=== PATIENT | male | born 1945 | race Caucasian/White ===

== ENCOUNTER → 2017-10-08 | Outpatient (REF) | payer OTHER ==
[2017-10-08 14:34] LABS: APPEARANCE, URINE HAZY (CLEAR); BACTERIA, URINE AUTO NEGATIVE (NEGATIVE); BILIRUBIN, URINE AUTO NEGATIVE (NEGATIVE); BLOOD, URINE BLOOD NEGATIVE (NEGATIVE); COLOR, URINE YELLOW (YELLOW); GLUCOSE, URINE (UA) AUTO NEGATIVE (NEGATIVE); KETONE, URINE AUTO TRACE mg/dL (NEGATIVE); LEUKOCYTE ESTERASE, URINE AUTO NEGATIVE (NEGATIVE); MUCUS, URINE SMALL (NEGATIVE); NITRITE, URINE AUTO NEGATIVE (NEGATIVE); PROTEIN, URINE AUTO NEGATIVE (NEGATIVE); RBC, URINE AUTO 18 /HPF (0-3); SPECIFIC GRAVITY URINE AUTO 1.029 (1.002-1.035); SQUAMOUS EPITHELIAL CELL UR AU 0 /HPF (0-6); WBC, URINE AUTO 0 /HPF (0-3)
== END ==
LOC: M SMT 13:34
DX: R97.20 Elevated prostate specific antigen [PSA] (principal)
CPT/HCPCS: 81001

== ENCOUNTER → 2017-12-01 | Outpatient (CLI) | payer OTHER | LOC: M SMT PRO 09:01 | DX: C61 Malignant neoplasm of prostate (principal); R97.20 Elevated prostate specific antigen [PSA] | CPT/HCPCS: G0416 ==

== ENCOUNTER 2019-05-13 06:59 | Day surgery (SDC) | payer OTHER ==
[~2019-05-13] VITALS: Ht 172.7 cm; Wt 90.7 kg
[~2019-05-13 06:59] MED LIST: ASPI81TA85 PO; EFFE37.5 PO; FINA5TAB2 PO; FOSI40TA3 PO; LIPI80TA PO; NEUR100C PO; OMEP-218 PO; PLAV1TAB2 PO; PROAAER10 INH; SERO1TAB3 PO; SYMB80INH INH; TOPR25TA PO; TRAZ1TAB10 PO; VENL100T PO; VITAD1000T PO
[2019-05-13] MEDS ORDERED: LevoFLOXacin IV 500 MG in IV 1 EA IV ONE (07:00)
[2019-05-13] MEDS ORDERED: MIDAZOLAM INJ 2 MG/2 ML VIAL (J2250) As Ordered ONE (10:23)
[2019-05-13] MEDS ORDERED: fentaNYL 100 MCG/2 ML INJECTION (J3010) As Ordered ONE (10:23)
[2019-05-13] MEDS ORDERED: ONDANSETRON 4MG/2ML VIAL (J2405) As Ordered ONE (10:24)
[2019-05-13] MEDS ORDERED: LIDOCAINE 2% INJ 100 MG/5 ML SDV (FOR ANES.) As Ordered ONE (10:24)
[2019-05-13] MEDS ORDERED: propofoL 200 MG/20 ML VIAL As Ordered ONE (10:28)
[2019-05-13] MEDS ORDERED: LR 1,000 ML IV ONE (11:00)
--- NOTE | 2019-05-13 12:02 | ROOPDOC ---
[facility] Report Of Operation Report of Operation DATE OF PROCEDURE: 05/13/19 PREPROCEDURE DIAGNOSES: Prostate Cancer, Rising Prostate Specific Antigen (PSA). POSTPROCEDURE DIAGNOSES: Prostate Cancer, Rising PSA. PROCEDURE: Transrectal Ultrasound-guided Prostate Biopsy. SURGEON: Radha Atkinson MD INVENTORY SPECIALIST: Lilia ANESTHESIA: Monitored Anesthesia Care (MAC). OPERATIVE INDICATIONS: This is a 73 year old male with clinical T1c L[place] 3+3 prostate cancer, managed with active surveillance. Due to his rising PSA, it was recommended that he undergo a repeat prostate biopsy. Given moderate discomfort when this was done previously in the office, he requested to have this done in the operating room this time. DESCRIPTION OF PROCEDURE: The patient was brought to the operating room and MAC was administered. He was then placed in the left lateral position. A transrectal ultrasound probe was placed into the rectum. Then core biopsies of the prostate were obtained using a disposable biopsy gun, from the right and left base, right and left base lateral, right and left mid, right and left mid lateral, right and left apex, and right and left apex lateral locations. Additional biopsies were obtained from the apex and apex lateral locations on both sides as his cancer was identified in these areas previously. There were no complications and the patient was taken to the recovery room in stable condition. ESTIMATED BLOOD LOSS: Approximately 5 mL. COMPLICATIONS: None. SPECIMENS: Prostate biopsies. PLAN: The patient will follow up in 1 week to discuss pathology results. RADHA ATKINSON MD May 13, 2019 12:02
[2019-05-13 12:25] VITALS: BP 141/82
--- NOTE | 2019-05-13 13:44 | REP ---
TRANSRECTAL ULTRASOUND GUIDANCE FOR PROSTATE BIOPSY: Transrectal ultrasound guidance was provided for Dr. Hylton who performed ultrasound guided biopsy of the prostate. Electronically Signed by Natanael Weaver MD 05/13/2019 03:56 P
== END 2019-05-13 12:30 | disposition home or self-care (01) ==
LOC: M SDC 06:59
PROVIDERS: ATTEND Urology
DX: R97.20 Elevated prostate specific antigen [PSA] (principal); C61 Malignant neoplasm of prostate; I10 Essential (primary) hypertension; E11.9 Type 2 diabetes mellitus without complications; I25.2 Old myocardial infarction; E78.5 Hyperlipidemia, unspecified; Z98.61 Coronary angioplasty status; F32.9 Major depressive disorder, single episode, unspecified; F43.10 Post-traumatic stress disorder, unspecified; F17.218 Nicotine dependence, cigarettes, with other nicotine-induced disorders; Z79.51 Long term (current) use of inhaled steroids; Z79.02 Long term (current) use of antithrombotics/antiplatelets; Z79.82 Long term (current) use of aspirin; Z79.899 Other long term (current) drug therapy; Z88.8 Allergy status to other drugs, medicaments and biological substances
CPT/HCPCS: 55700; G0416; J2250; J2405; J3010

== ENCOUNTER 2025-01-05 11:39 | Inpatient (IN) | payer MEDICARE, OTHER ==
[~2025-01-05] VITALS: Ht 175.3 cm; Wt 76.4 kg
[~2025-01-05 11:39] MED LIST changes: -ASPI81TA85 PO; +ASPI81TA86 PO; +ATOR-398 PO; +CLOP75TA99 PO; -EFFE37.5 PO; +EFFE37.52 PO; -FOSI40TA3 PO; +FOSI40TA59 PO; -LIPI80TA PO; +OMEP-173 PO; -OMEP-218 PO; -PLAV1TAB2 PO; +VITA100093 PO; -VITAD1000T PO
[2025-01-06] MEDS ORDERED: ALBUTEROL 90 MCG/ACT 8 GM HFA INHALER INH PRN (15:20)
[2025-01-06] MEDS ORDERED: MOM 30 ML SUSPENSION UDC PO PRN (15:30)
[2025-01-06] MEDS ORDERED: BISACODYL 10 MG SUPP PR PRN (15:30)
[2025-01-06] MEDS ORDERED: GLUCAGON INJ 1 MG VIAL SC PRN (15:30)
[2025-01-06] MEDS ORDERED: MAALOX 30 ML SUSP *UDC PO PRN (15:30)
[2025-01-06] MEDS ORDERED: NICOTINE 21 MG/24 HR 1 EA TRANSDERMAL TD PRN (15:30)
[2025-01-06] MEDS ORDERED: GLUCOSE 4 GM CHEW PO PRN (15:30)
[2025-01-06] MEDS ORDERED: ACETAMINOPHEN 325 MG TAB PO PRN (15:30)
[2025-01-06] MEDS ORDERED: SIMETHICONE 80MG CHEW TAB PO PRN (15:30)
[2025-01-06] MEDS ORDERED: BISACODYL 5 MG TAB PO PRN (15:30)
[2025-01-06] MEDS ORDERED: DEXTROSE 50% 50 ML SYRINGE IV PRN (15:30)
[2025-01-06] MEDS ORDERED: ONDANSETRON 4MG ORAL DISINTEGRATING TAB PO PRN (15:30)
[2025-01-06] MEDS ORDERED: RAMELTEON 8 MG TAB PO PRN (15:30)
[2025-01-06] MEDS ORDERED: **hydrALAZINE HCL** 25 MG TAB PO PRN (16:30)
[2025-01-06 17:15] VITALS: BP 144/73; TEMP 97.5; O2SAT 100
[2025-01-06] MEDS: INSULIN LISPRO (NovoLOG) PER UNIT SC SCH ×2 (17:30→21:00)
[2025-01-06 20:00] VITALS: BP 148/82; TEMP 98.4; O2SAT 92
[2025-01-06] MEDS ORDERED: ASPI81TA26 PO (20:03)
[2025-01-06] MEDS ORDERED: TRAM50TA2 PO (20:03)
[2025-01-06] MEDS ORDERED: GLIP5TAB17 PO (20:03)
[2025-01-06] MEDS ORDERED: METF-838 PO (20:03)
[2025-01-06] MEDS ORDERED: MIRA3350 PO (20:03)
[2025-01-06] MEDS ORDERED: VENL150T24 PO (20:03)
[2025-01-06] MEDS ORDERED: METH-1164 PO (20:03)
[2025-01-06] MEDS ORDERED: D3 S20002 PO (20:03)
[2025-01-06] MEDS ORDERED: METH2.5T48 PO (20:03)
[2025-01-06] MEDS ORDERED: FOLI1TAB11 PO (20:03)
[2025-01-06] MEDS ORDERED: VENTAER INH (20:04)
[2025-01-06] MEDS ORDERED: HOME MED LIST COMPLETE! XX SCH (20:15)
[2025-01-06] MEDS: DOCUSATE SODIUM 100 MG CAPSULE PO SCH (21:24)
[2025-01-06] MEDS: traMADol 50 MG TAB PO PRN (21:42)
[2025-01-07 04:00] VITALS: BP 160/74; TEMP 98.1; O2SAT 95
[2025-01-07 06:12] LABS: BASO # 0.0 10^3/uL (0.0-0.2); BASO % 0.5 % (0.0-1.0); EOS # 0.3 10^3/uL (0.0-0.5); EOS % 3.6 % (0.0-3.0); LYMPH # 1.5 10^3/uL (1.5-5.0); LYMPH % 18.9 % (24.0-44.0); MONO # 0.8 10^3/uL (0.0-0.8); MONO % 9.5 % (2.0-8.0); NEUTROPHILS # 5.3 10^3/uL (1.5-8.5); NEUTROPHILS % 66.1 % (36.0-66.0); PLATELET COUNT, AUTOMATED 339 10^3/uL (150-450)
[2025-01-07 06:36] LABS: ALT/SGPT 59.0 U/L (7.0-40); AST/SGOT 51.0 U/L (<34); CALCIUM LEVEL 8.7 MG/DL (8.3-10.6); CARBON DIOXIDE LEVEL 29.0 MMOL/L (20-31); CHLORIDE LEVEL 104.0 MMOL/L (98-107); CREATININE FOR GFR 0.8 MG/DL (0.70-1.30); GLOMERULAR FILTRATION RATE 90.0 (>42); POTASSIUM SERUM 4.3 MMOL/L (3.5-5.1); SODIUM LEVEL 141.0 MMOL/L (136-145)
[2025-01-07] MEDS: MIRALAX *UNIT DOSE* 17 GM PACKET PO SCH (09:00)
[2025-01-07] MEDS: MULTIVITAMINS/MINERALS THERAP 1 TAB PO SCH (09:07)
[2025-01-07] MEDS: ASPIRIN 81 MG ENTERIC TABLET PO SCH (09:07)
[2025-01-07] MEDS: ENOXAPARIN 40 MG/0.4 ML SYRINGE (J1650 PER 10MG) SC SCH (09:07)
[2025-01-07] MEDS: VENLAFAXINE **XR** 75MG CAPSULE PO SCH (09:07)
[2025-01-07] MEDS: CLOPIDOGREL 75 MG TAB PO SCH (09:08)
[2025-01-07] MEDS: VITAMIN D 1,000 INTERNATIONAL UNITS TABLET PO SCH (09:08)
[2025-01-07] MEDS: METOPROLOL SUCC. 25 MG *XL* TAB PO SCH (09:08)
[2025-01-07] MEDS: FINASTERIDE 5 MG TAB PO SCH (09:09)
[2025-01-07 12:00] VITALS: BP 128/63; TEMP 98; O2SAT 98
[2025-01-07 20:00] VITALS: BP 123/65; TEMP 98.6; O2SAT 94
[2025-01-07] MEDS: ATORVASTATIN 20 MG TAB PO SCH (20:21)
[2025-01-08 04:00] VITALS: BP 120/69; TEMP 98.1; O2SAT 95
[2025-01-08 12:00] VITALS: BP 109/56; TEMP 97.5; O2SAT 93
[2025-01-08 19:10] VITALS: BP 131/60; TEMP 97.7; O2SAT 95
[2025-01-09 04:00] VITALS: BP 157/74; TEMP 97.8; O2SAT 96
[2025-01-09 05:00] VITALS: BP 148/70
[2025-01-09 05:57] LABS: PLATELET COUNT, AUTOMATED 380 10^3/uL (150-450)
[2025-01-09 12:00] VITALS: BP 153/74; TEMP 97.9; O2SAT 95
[2025-01-09] MEDS ORDERED: OMEPRAZOLE 20MG CAP PO ONE (12:00)
[2025-01-09] MEDS: OMEPRAZOLE 20MG CAP PO SCH (12:07)
[2025-01-09] MEDS: DICLOFENAC EPOLAMINE 1.3% PATCH TOP SCH (12:07)
[2025-01-09] MEDS: ACETAMINOPHEN 500 MG TAB PO SCH (12:08)
[2025-01-09] MEDS: IBUPROFEN 400 MG TAB PO SCH (12:10)
[2025-01-09] MEDS: DOXYCYCLINE HYCLATE 100 MG TABLET PO SCH (12:10)
[2025-01-09 19:05] VITALS: BP 136/65; TEMP 98.1; O2SAT 100
[2025-01-09] MEDS: VANICREAM MOISTURIZING SKIN CREAM 113GM TUBE TOP SCH (20:12)
[2025-01-10 05:05] VITALS: BP 157/80; TEMP 97.3; O2SAT 96
[2025-01-10 05:49] VITALS: BP 150/76
[2025-01-10 12:00] VITALS: BP 159/72; TEMP 97.7; O2SAT 96
[2025-01-10] MEDS ORDERED: CALCIUM CARBONATE 500 MG CHEW U/D PO PRN (12:55)
[2025-01-10] MEDS: PANTOPRAZOLE 40MG TAB PO ONE (13:54)
[2025-01-10] MEDS: CALCIUM CARBONATE 500 MG CHEW U/D PO ONE (13:54)
[2025-01-10] MEDS: PANTOPRAZOLE 40MG TAB PO SCH (16:19)
[2025-01-10 19:05] VITALS: BP 132/63; TEMP 96.7; O2SAT 96
[2025-01-10] MEDS: IBUPROFEN 400 MG TAB PO SCH (19:42)
[2025-01-10] MEDS ORDERED: PANTOPRAZOLE 40MG TAB PO SCH (21:00)
[2025-01-11 03:33] VITALS: BP 155/67; TEMP 97; O2SAT 96
[2025-01-11] MEDS: NAPROXEN 250 MG TAB PO SCH (07:46)
[2025-01-11 12:00] VITALS: BP 142/65; TEMP 97.6; O2SAT 98
[2025-01-11] MEDS: predniSONE 20 MG TAB PO ONE (14:30)
[2025-01-11 20:00] VITALS: BP 137/65; TEMP 98.6; O2SAT 95
[2025-01-12 04:00] VITALS: BP 141/64; TEMP 97.8; O2SAT 92
[2025-01-12] MEDS: predniSONE 20 MG TAB PO SCH (09:17)
[2025-01-12 12:00] VITALS: BP 139/78; TEMP 98.2; O2SAT 98
[2025-01-12 20:00] VITALS: BP 141/67; TEMP 97.8; O2SAT 96
[2025-01-13 04:00] VITALS: BP 165/78; TEMP 97.4; O2SAT 95
[2025-01-13 12:03] VITALS: BP 157/71; TEMP 98.6; O2SAT 97
[2025-01-13 19:43] VITALS: BP 133/63; TEMP 98; O2SAT 96
[2025-01-14 04:12] VITALS: BP 163/71; TEMP 98.2; O2SAT 98
[2025-01-14 09:20] VITALS: BP 115/65; TEMP 98; O2SAT 98
[2025-01-14 12:00] VITALS: BP 110/71; TEMP 97.9; O2SAT 98
[2025-01-14 19:32] VITALS: BP 142/83; TEMP 97.9; O2SAT 98
[2025-01-15 04:00] VITALS: BP 168/65; TEMP 97.7; O2SAT 98
[2025-01-15 04:15] VITALS: BP 134/63
[2025-01-15 12:00] VITALS: BP 130/63; TEMP 98.4; O2SAT 97
[2025-01-15 19:53] VITALS: BP 151/68; TEMP 98.4; O2SAT 95
[2025-01-16 03:42] VITALS: BP 146/72; TEMP 97; O2SAT 95
[2025-01-16 12:00] VITALS: BP 139/66; TEMP 98.2; O2SAT 98
[2025-01-16 13:35] LABS: BASO # 0.1 10^3/uL (0.0-0.2); BASO % 0.6 % (0.0-1.0); EOS # 0.1 10^3/uL (0.0-0.5); EOS % 1.0 % (0.0-3.0); LYMPH # 1.0 10^3/uL (1.5-5.0); LYMPH % 8.0 % (24.0-44.0); MONO # 0.6 10^3/uL (0.0-0.8); MONO % 4.8 % (2.0-8.0); NEUTROPHILS # 10.5 10^3/uL (1.5-8.5); NEUTROPHILS % 84.7 % (36.0-66.0); PLATELET COUNT, AUTOMATED 470 10^3/uL (150-450)
[2025-01-16 14:33] LABS: CALCIUM LEVEL 8.8 MG/DL (8.3-10.6); CARBON DIOXIDE LEVEL 25.0 MMOL/L (20-31); CHLORIDE LEVEL 104.0 MMOL/L (98-107); CREATININE FOR GFR 0.83 MG/DL (0.70-1.30); GLOMERULAR FILTRATION RATE 89.0 (>42); POTASSIUM SERUM 4.8 MMOL/L (3.5-5.1); SODIUM LEVEL 141.0 MMOL/L (136-145)
[2025-01-16 20:00] VITALS: BP 136/63; TEMP 97.5; O2SAT 98
[2025-01-17 04:00] VITALS: BP 153/71; TEMP 97.1; O2SAT 95
[2025-01-17 12:00] VITALS: BP 140/70; TEMP 97.6; O2SAT 97
[2025-01-17 20:00] VITALS: BP 133/61; TEMP 98; O2SAT 95
[2025-01-18 04:00] VITALS: BP 138/70; TEMP 97.2; O2SAT 94
[2025-01-18 12:00] VITALS: BP 145/68; TEMP 96.3; O2SAT 97
[2025-01-18] MEDS ORDERED: ATOR-398 PO (14:23)
[2025-01-18] MEDS ORDERED: PRED5TA PO (14:23)
[2025-01-18] MEDS ORDERED: METF10004 PO (14:23)
[2025-01-18] MEDS ORDERED: DICL1PAT6 TOP (14:23)
[2025-01-18] MEDS ORDERED: GLIP-318 PO (14:23)
[2025-01-18] MEDS ORDERED: PANT40TA29 PO (14:23)
[2025-01-18] MEDS: ASPIRIN 81 MG ENTERIC TABLET PO SCH (14:34)
[2025-01-18 20:16] VITALS: BP 132/66; TEMP 97.7; O2SAT 97
[2025-01-19 04:00] VITALS: BP 146/68; TEMP 96.9; O2SAT 97
[2025-01-19 08:54] VITALS: BP 130/60
[2025-01-19] MEDS: NAPROXEN 250 MG TAB PO SCH (08:55)
[2025-01-19] MEDS ORDERED: NAPR-849 PO (09:29)
== END 2025-01-19 10:50 | DRG 57 ==
LOC: M PM&R 01-06 17:15
PROVIDERS: ADMIT Physical Medicine & Rehabilitation; ATTEND Physical Medicine & Rehabilitation
DX: I69.398 Other sequelae of cerebral infarction (principal); G90.59 Complex regional pain syndrome I of other specified site; Z95.2 Presence of prosthetic heart valve; N40.0 Benign prostatic hyperplasia without lower urinary tract symptoms; I10 Essential (primary) hypertension; E11.51 Type 2 diabetes mellitus with diabetic peripheral angiopathy without gangrene; R29.6 Repeated falls; F17.210 Nicotine dependence, cigarettes, uncomplicated; I25.2 Old myocardial infarction; M17.0 Bilateral primary osteoarthritis of knee; F32.A Depression, unspecified; G47.00 Insomnia, unspecified; R00.0 Tachycardia, unspecified; R60.0 Localized edema; R26.89 Other abnormalities of gait and mobility; S52.502D Unspecified fracture of the lower end of left radius, subsequent encounter for closed fracture with routine healing; Z79.899 Other long term (current) drug therapy; Z88.6 Allergy status to analgesic agent; I25.10 Atherosclerotic heart disease of native coronary artery without angina pectoris